=== PATIENT | female | born 1970 | race Caucasian/White ===

== ENCOUNTER 2017-07-07 17:53 | Emergency (ER) | payer OTHER ==
[2017-07-07] MEDS: LIDOCAINE 1% PF 2 ML VIAL. INJ (18:29)
[2017-07-07] MEDS: DIPHTH,PERTUSS(ACELL),TET TOX 0.5 ML DISP.SYRIN. VAX IM (19:00)
== END 2017-07-07 19:03 | disposition home or self-care (01) ==
LOC: ER 19:03
DX: S61.012A Laceration without foreign body of left thumb without damage to nail, initial encounter (principal); W23.0XXA Caught, crushed, jammed, or pinched between moving objects, initial encounter; Y93.89 Activity, other specified; Y99.8 Other external cause status; Y92.89 Other specified places as the place of occurrence of the external cause
CPT/HCPCS: 12001; 90471; 90715; 99283-25